=== PATIENT | female | born 1950 | race Caucasian/White ===

== ENCOUNTER 2025-05-29 21:42 | Inpatient (IN) ==
--- NOTE | 2025-05-29 22:05 | ED Physician Documentation ---
History of Present Illness Stated complaint Stated Complaint: GLF Chief complaint Chief Complaint: General History obtained from History obtained from: Patient and EMS History of Present Illness Pain level max: 7 Pain level now: 7 Additonal information Additional information: Patient is a 75-year-old female who lives at home with family. Mechanical fall, landing on the right hip. Unable to walk after the fall. History of developmental delay and early dementia. No home medications. No head, neck, back pain. Patient states she does not take any medications at home. No nausea or vomiting. No numbness or tingling. [place] Coma Scale Assess Eye opening: Spontaneous Verbal response: Oriented Motor response: Obeys Commands Total score: 15 Review of Systems Constitutional Denies: Fever Ears, nose, mouth, and throat Denies: Neck pain Cardiovascular Denies: chest pain or palpitations Respiratory Denies: Cough Gastrointestinal Denies: Abdominal pain or Vomiting Musculoskeletal Denies: Back pain or Neck pain Integumentary/Breast Denies: Rash Neurological Denies: Headache Meds/Allgy Home Medications Ambulatory Orders Medication Instructions Recorded Confirmed No Known Home Medications 07/24/2405/04 Allergies Allergies Allergy/AdvReac Type Severity Reaction Status Date / Time No Known Drug Allergies Allergy Verified 07/24/24 15:08 PFSH Active Problems All Active Problems (Updated 05/29/25 @ 22:17 by Cedrick Castaneda MD) Intertrochanteric fracture of right hip (Acute) Social History Social History Do you feel safe in your home environment?: Yes History of physical, verbal, emotional, or financial abuse?: No Exam Exam Vital Signs: Vital Signs x48h Temp Pulse Resp BP Pulse Ox 05/29/25 21:54 87 20 130/77 96 05/29/25 21:47 36.7 C 78 20 141/69 H 98 Constitutional normal general appearance and no apparent distress HENMT normocephalic, head/scalp atraumatic and TMs normal bilaterally Eyes PERRL and EOMs intact bilaterally Neck/C-Spine visual inspection normal, trachea midline, cervical spine nontender and cervical full ROM noted No tenderness to palpation or percussion. No step-off or deformity. Chest inspection of chest normal and palpation of chest normal Respiratory breath sounds equal bilaterally, normal respiratory effort and clear to ausc ultation bilaterally Cardiovascular normal heart rate noted and regular rhythm noted Gastrointestinal abdomen normal to inspection, abdomen soft to palpation, nontender to palpation, nontender to percussion and nondistended Genitourinary no CVA tenderness Back/Pelvis spine normal to inspection, no thoracic spine tenderness and no lumbar spine tenderness No tenderness to palpation or percussion. No step-off or deformity over the thoracolumbar spine Extremities right hip - Tender to palpation over the right hip. Leg is mildly shortened and externally rotated. Neurovascularly intact. Pain with range of motion. Otherwise normal examination of the extremities. Neurology chief ii dispatcher II-XII intact and GCS 15 Psychiatry mental status grossly normal and oriented x3 Skin skin color normal Results Vitals Vitals: Vital Signs - 24 hr 05/29/25 21:47 05/29/25 21:50 05/29/25 21:54 Temperature 36.7 C Temperature Source Tympanic Pulse Rate 78 87 Respiratory Rate 20 20 Blood Pressure 141/69 H 130/77 O2 Saturation 98 96 Oxygen Delivery Method Room Air O2 Source Room air Room air Pain Intensity 7 7 05/29/25 22:43 Temperature Temperature Source Pulse Rate Respiratory Rate Blood Pressure O2 Saturation Oxygen Delivery Method O2 Source Pain Intensity 8 Oxygen O2 Source Room air Labs Labs: Laboratory Tests 05/29/25 22:12 WBC 11.0 H RBC 3.25 L Hgb 10.9 L Hct 33.7 L MCV 103.7 H MCH 33.5 H MCHC 32.3 RDW 17.4 H Plt Count 158 MPV 11.7 H Neut # (Auto) 8.9 H Lymph # (Auto) 0.9 L [place] # (Auto) 0.8 Eos # (Auto) 0.1 Baso # (Auto) 0.1 Absolute Nucleated RBC 0.00 Nucleated RBC % 0.0 Sodium 141 Potassium 3.9 Chloride 109 Carbon Dioxide 24 Anion Gap 8.0 BUN 28 H Creatinine 1.2 Estimated GFR (MDRD) 44 L Glucose 153 H Calcium 9.2 Total Bilirubin 0.7 AST 15 ALT 9 L Alkaline Phosphatase 67 Total Protein 7.3 Albumin 3.9 Globulin 3.4 Albumin/Globulin Ratio 1.1 Rads (name of study) Right hip x-ray: Relevant Findings:: Final report received Chest x-ray: Relevant Findings:: Final report received PD Medical Decision Making ED course Complexity details: reviewed results, re-evaluated patient, considered differential and d/w patient ED course: Patient with a right intertrochanteric hip fracture. Neurovascularly intact. Pain well-controlled with morphine. Discussed the case with orthopedics, Dr. Clarke, will see in the morning. Discussed the case with the hospitalist who accepts. No other acute injuries. No significant lab abnormalities. Patient will be admitted. This document was made in part using voice recognition software. While efforts are made to proofread this document, sound alike and grammatical errors may occur. Discharge Plan Discharge Patient Disposition: 66 [facility] DC/Xfer Condition: Stable Clinical Impression: Intertrochanteric fracture of right hip Qualifiers: Encounter type: initial encounter Fracture type: closed Fracture alignment: displaced Qualified Code(s): S72.141A - Displaced intertrochanteric fracture of right femur, initial encounter for closed fracture Prescriptions: No Action No Known Home Medications Print Language: Urdu
[2025-05-29 22:16] LABS: HCT - HEMATOCRIT 33.7 % (37.0-47.0); HGB - HEMOGLOBIN 10.9 g/dL (12.0-16.0); MEAN PLATELET VOLUME 11.7 fL (7.9-10.8); NRBC ABSOLUTE COUNT (AUTO) 0.00 x10^3/uL; NUCLEATED RED BLOOD CELLS AUTO 0.0 /100WBC; PLT - PLATELET COUNT 158 10^3/uL (130-450); RED CELL DISTRIBUTION WIDTH 17.4 % (12.0-15.0)
--- NOTE | 2025-05-29 22:32 | XRAY Report ---
PROCEDURE: XR Chest 1V INDICATIONS: pre-op TECHNIQUE: One view of the chest was acquired. COMPARISON: None. FINDINGS: Surgical changes and devices: None. Lungs and pleura: No pleural effusions or pneumothorax. No consolidation. Mild interstitial prominence, which may be chronic. Mediastinum: Mediastinal contours appear normal. Heart size is normal. Bones and chest wall: No suspicious bony lesions. Overlying soft tissues appear unremarkable. IMPRESSION: Mild bilateral interstitial prominence, which may be chronic versus secondary to mild edema or an atypical or viral pneumonia. Reviewed by: Eladio Recinos MD on 05/29/2025 10:31 PM PDT Approved by: Eladio Recinos MD on 05/29/2025 10:31 PM PDT Station ID: [id number]
--- NOTE | 2025-05-29 22:34 | XRAY Report ---
PROCEDURE: XR Hip w/Pelvis 2-3V RT INDICATIONS: fall, pain TECHNIQUE: AP view of the pelvis and lateral view of the right hip. COMPARISON: None. FINDINGS: Bones: Comminuted fracture of the intertrochanteric region of the right proximal femur with varus angulation. Mildly displaced fractures of the left superior and inferior pubic rami. Generalized bony demineralization. Degenerative changes are seen in the included spine. Soft tissues: No suspicious soft tissue calcifications. IMPRESSION: 1.Comminuted displaced intertrochanteric fracture of the right proximal femur with varus angulation. 2.Mildly displaced fractures of the left superior and inferior pubic rami. Reviewed by: Eladio Recinos MD on 05/29/2025 10:33 PM PDT Approved by: Eladio Recinos MD on 05/29/2025 10:33 PM PDT Station ID: [id number]
[2025-05-29] MEDS: HYDROmorphone 0.5 MG/0.5 ML SYRINGE IVP STA (22:43)
[2025-05-29 22:48] LABS: ALT ALANINE AMINOTRANSFERASE 9.0 IU/L (10-60); AST ASPARTATE AMINOTRANSFERASE 15.0 IU/L (10-42); BUN - BLOOD UREA NITROGEN 28.0 mg/dL (6-20); CARBON DIOXIDE - CO2 24.0 mmol/L (21-32); CREATININE 1.2 mg/dL (0.6-1.3); GFR - MDRD 44.0 (>89)
[2025-05-29] MEDS ORDERED: PHENOL THROAT SPRAY 177 ML MM PRN (23:57)
[2025-05-29] MEDS ORDERED: BENZONATATE 100 MG CAPSULE PO PRN (23:57)
[2025-05-29] MEDS ORDERED: ALBUTEROL 1 PUFF INH PRN (23:57)
[2025-05-29] MEDS ORDERED: BENZOCAINE/MENTHOL LOZENGE MM PRN (23:57)
[2025-05-29] MEDS ORDERED: MORPHINE 10 MG/ML VIAL IVP PRN (23:57)
[2025-05-30] MEDS ORDERED: ALBUTEROL NEB 2.5 MG/3 ML INH PRN (00:16)
[2025-05-30 00:42] LABS: CHOL/HDL RATIO 2.2 (<4.4); LDL/HDL RATIO 1.0 (<4.4); VLDL CHOLESTEROL 11 mg/dL
--- NOTE | 2025-05-30 01:43 | HISTORY & PHYSICAL EXAMINATION ---
Chief Complaint Chief Complaint Chief Complaint: R hip pain s/p fall from bed History of Present Illness History of Present Illness HPI Comment/Other: pt with h/o developmental delay + early dementia. brought to hospital after rolling out of bed and hurting her R hip. apart from hip pain, she has no other complaints. does not take any meds. no fevers, chills, n/v/d. no head injuries or LOC. no dysuria reported. no chest pain. no head pain. no sob. details obtained from discussion with ed staff. ortho consulted d/o displaced R intertrochanteric fx. no numbness or tingling. Review of Systems Status of ROS: 10 or more systems reviewed and unremarkable except as noted in history and below PFSH Active Problems All Active Problems (Updated 05/29/25 @ 22:17 by Cedrick Castaneda MD) Intertrochanteric fracture of right hip (Acute) Social History Social History Smoking Status: Never smoker Do you feel safe in your home environment?: Yes History of physical, verbal, emotional, or financial abuse?: No Meds/Allgy Home Medications Ambulatory Orders Medication Instructions Recorded Confirmed No Known Home Medications 07/24/2405/04 Allergies Allergies Allergy/AdvReac Type Severity Reaction Status Date / Time No Known Drug Allergies Allergy Verified 07/24/24 15:08 Exam Exam Vital Signs: Vital Signs x48h Temp Pulse Pulse Resp BP BP Pulse Ox 05/30/25 01:05 36.7 C 83 41 H 156/73 H 94 05/30/25 00:39 87 22 137/89 H 98 05/29/25 23:50 67 22 135/87 H 98 05/29/25 21:54 87 20 130/77 96 05/29/25 21:47 36.7 C 78 20 141/69 H 98 gen - awake, alert, can't describe all details preceding but otherwise can answer simple questions. nad heent - eomi, nc/at, smiling heart - per ed charting lungs - no obvious distress or retractions abd - no obvious distension or protrusions msk - pt wearing pants so exam limited; details per ed charting Conclusion/Plan Problem List (1) Intertrochanteric fracture of right hip: Qualifiers: Encounter type: initial encounter Fracture alignment: displaced F racture type: closed Qualified Code(s): S72.141A - Displaced intertrochanteric fracture of right femur, initial encounter for closed fracture Plan pt with - R hip fracture s/p fall from bed ortho on case bedrest, pain control, will need pt post-op - elevated bp no meds noted for htn likely related to pain / discomfort monitor - leukocytosis + neutrophilia maybe exacerbated d/t above check ua, cxr showing possibl findings of viral pna check resp viral panel no sob, no fevers or chills, no chest pain - anemia chronic disease / debility + kidney disease (below) check iron studies - akila vs ckd likely age-related changes vs hypertensive nephropathy continue IVF check renal sono further orders per clinical course Lab Results 05/29/25 22:12 05/29/25 22:12
[2025-05-30] MEDS: MORPHINE 2 MG/ML CARPUJECT IVP PRN (01:48)
[2025-05-30] MEDS: LACTATED RINGERS 1,000 ML IV SCH ×3 (01:52→16:22)
[2025-05-30 04:35] LABS: INFLUENZA A- RESP PCR PANEL NOT DETECTED; INFLUENZA B - RESP PCR PANEL NOT DETECTED; RSV- RESP PCR PANEL NOT DETECTED; SARS-CoV-2 -RESP PCR PANEL NOT DETECTED
[2025-05-30 05:21] LABS: HCT - HEMATOCRIT 34.2 % (37.0-47.0); HGB - HEMOGLOBIN 10.5 g/dL (12.0-16.0); MEAN PLATELET VOLUME 12.2 fL (7.9-10.8); NRBC ABSOLUTE COUNT (AUTO) 0.00 x10^3/uL; NUCLEATED RED BLOOD CELLS AUTO 0.0 /100WBC; PLT - PLATELET COUNT 159 10^3/uL (130-450); RED CELL DISTRIBUTION WIDTH 17.3 % (12.0-15.0)
[2025-05-30 05:41] LABS: % IRON SATURATION 12.0 % (20-50)
[2025-05-30 05:52] LABS: ALT ALANINE AMINOTRANSFERASE 10.0 IU/L (10-60); AST ASPARTATE AMINOTRANSFERASE 20.0 IU/L (10-42); BUN - BLOOD UREA NITROGEN 25.0 mg/dL (6-20); CARBON DIOXIDE - CO2 27.0 mmol/L (21-32); CREATININE 1.1 mg/dL (0.6-1.3); GFR - MDRD 48.0 (>89)
--- NOTE | 2025-05-30 07:59 | CONSULTATION NOTE ---
History of Present Illness History of Present Illness HPI Comment/Other: Primary Care Office Visit: HPI: Alba Chao is an elderly patient who fell in her bedroom. She rolled in bed and fell out of the bed. Unable to get up or walk after the fall. Lives with family. No other major medical conditions reported. Exam: Patient able to wiggle toes. Foot warm with 2+ pulse. Sensation intact to light touch. Pain with hip movement. No obvious deformity noted. Results: Pelvic X rays show right endotracheal enteric fracture with displaced lesser trochanteric fracture. The neck shaft angle is about 105 degrees. Office Procedures: Assessment and Plan: Assessment: Intertrochanteric fracture of the hip, confirmed by X-rays. Patient unable to ambulate due to the fracture. Plan: Surgical intervention recommended with implants (metal hardware, imke, and screws). Surgery expected to allow patient to walk as soon as the day after the procedure. Patient deemed a good candidate for surgery by the medical team. Nothing to eat or drink in preparation for surgery. Patient to be scheduled for surgery shortly. Post-operative plan includes allowing the patient to eat after the procedure. PFSH Active Problems All Active Problems (Updated 05/30/25 @ 02:09 by Melony Durán RN, BSN) Intertrochanteric fracture of right hip (Acute) Medical History Medical History (Updated 05/30/25 @ 02:09 by Melony Durán, RN, BSN) Developmental delay Nose fracture Social History Social History (Updated 05/30/25 @ 02:01 by Naveen Camp DO) Smoking Status: Never smoker Do you feel safe in your home environment?: Yes History of physical, verbal, emotional, or financial abuse?: No Meds/Allgy Home Medications Ambulatory Orders Medication Instructions Recorded Confirmed No Known Home Medications 07/24/2405/04 Allergies Allergies Allergy/AdvReac Type Severity Reaction Status Date / Time No Known Drug Allergies Allergy Verified 07/24/24 15:08 Results Lab Results Lab results reviewed: Yes 05/30/25 05:06 05/30/25 05:06 Other Lab Results: Lab Results x24hrs 05/30/25 05/30/25 05/29/25 Range/Units 05:06 03:30 22:12 WBC 12.2 H 11.0 H (4.8-10.8) x10^3/uL RBC 3.25 L 3.25 L (4.20-5.40) 10^6/uL Hgb 10.5 L 10.9 L (12.0-16.0) g/dL Hct 34.2 L 33.7 L (37.0-47.0) % MCV 105.2 H 103.7 H (81.0-99.0) fL MCH 32.3 H 33.5 H (27.0-31.0) pg MCHC 30.7 L 32.3 (32.0-36.0) g/dL RDW 17.3 H 17.4 H (12.0-15.0) % Plt Count 159 158 (130-450) 10^3/uL MPV 12.2 H 11.7 H (7.9-10.8) fL Neut # (Auto) 10.2 H 8.9 H (1.5-6.6) 10^3/uL Lymph # (Auto) 0.8 L 0.9 L (1.5-3.5) 10^3/uL [place] # (Auto) 1.0 0.8 (0.0-1.0) 10^3/uL Eos # (Auto) 0.0 0.1 (0.0-0.7) 10^3/uL Baso # (Auto) 0.1 0.1 (0.0-0.1) 10^3/uL Absolute Nucleated RBC 0.00 0.00 x10^3/uL Nucleated RBC % 0.0 0.0 /100WBC Sodium 140 141 (135-145) mmol/L Potassium 4.7 H 3.9 (3.5-4.5) mmol/L Chloride 107 109 (101-111) mmol/L Carbon Dioxide 27 24 (21-32) mmol/L Anion Gap 6.0 8.0 (6-13) BUN 25 H 28 H (6-20) mg/dL Creatinine 1.1 1.2 (0.6-1.3) mg/dL Estimated GFR (MDRD) 48 L 44 L (>89) Glucose 142 H 153 H (74-104) mg/dL Calcium 9.1 9.2 (8.5-10.3) mg/dL Magnesium 1.9 (1.7-2.3) mg/dL Iron 27 L (50-212) ug/dL TIBC 217 L (250-450) ug/dL % Saturation 12 L (20-50) % Transferrin 155 L (203-362) mg/dL Ferritin 1283.6 H (11.0-306.8) ng/mL Total Bilirubin 1.1 H 0.7 (0.2-1.0) mg/dL AST 20 15 (10-42) IU/L ALT 10 9 L (10-60) IU/L Alkaline Phosphatase 63 67 (42-121) IU/L Total Protein 7.1 7.3 (6.4-8.9) g/dL Albumin 3.9 3.9 (3.2-5.5) g/dL Globulin 3.2 3.4 (2.1-4.2) g/dL Albumin/Globulin Ratio 1.2 1.1 (1.0-2.2) Triglycerides 55 mg/dL Cholesterol 123 ( - 200) mg/dL LDL Cholesterol, Calc 55 ( - 129) mg/dL VLDL Cholesterol 11 mg/dL HDL Cholesterol 57 L (60 - ) mg/dL LDL/HDL Ratio 1.0 (<4.4) Cholesterol/HDL Ratio 2.2 (<4.4) TSH 1.88 (0.34-5.60) uIU/mL Nasal Influenza B PCR NOT DETECTED Nasal Influenza A PCR NOT DETECTED Nasal RSV (PCR) NOT DETECTED Nasal SARS-CoV-2 (PCR) NOT DETECTED Diagnostic Imaging Results Diagnostic Imaging Results: positive Read independently Review of Systems Status of ROS: 10 or more systems reviewed and unremarkable except as noted in history and below Constitutional Denies: Fever Ears, nose, mouth, and throat Denies: Neck pain Cardiovascular Denies: chest pain or palpitations Respiratory Denies: Cough Gastrointestinal Denies: Abdominal pain or Vomiting Musculoskeletal Denies: Back pain or Neck pain Integumentary/Breast Denies: Rash Neurological Denies: Headache Exam Exam Vital Signs: Vital Signs x48h Temp Pulse Pulse Resp BP BP Pulse Ox 05/30/25 05:06 36.5 C 76 28 H 126/63 94 05/30/25 02:01 22 05/30/25 01:05 36.7 C 83 41 H 156/73 H 94 05/30/25 00:39 87 22 137/89 H 98 gen - awake, alert, can't describe all details preceding but otherwise can answer simple questions. nad heent - eomi, nc/at, smiling heart - per ed charting lungs - no obvious distress or retractions abd - no obvious distension or protrusions msk - pt wearing pants so exam limited; details per ed charting Constitutional normal general appearance and no apparent distress HENMT normocephalic, head/scalp atraumatic and TMs normal bilaterally Eyes PERRL and EOMs intact bilaterally Neck/C-Spine visual inspection normal, trachea midline, cervical spine nontender and cervical full ROM noted No tenderness to palpation or percussion. No step-off or deformity. Chest inspection of chest normal and palpation of chest normal Respiratory breath sounds equal bilaterally, normal respiratory effort and clear to auscultation bilaterally Cardiovascular normal heart rate noted and regular rhythm noted Gastrointestinal abdomen normal to inspection, abdomen soft to palpation, nontender to palpation, nontender to percussion and nondistended Genitourinary no CVA tenderness Back/Pelvis spine normal to inspection, no thoracic spine tenderness and no lumbar spine tenderness No tenderness to palpation or percussion. No step-off or deformity over the thoracolumbar spine Extremities right hip - Tender to palpation over the right hip. Leg is mildly shortened and externally rotated. Neurovascularly intact. Pain with range of motion. Otherwise normal examination of the extremities. Neurology commercial intelligence manager II-XII intact and GCS 15 Psychiatry mental status grossly normal and oriented x3 Skin skin color normal Conclusion/Plan Problem List (1) Intertrochanteric fracture of right hip: Plan: R hip Intertrochanteric fracture. Qualifiers: Encounter type: initial encounter Fracture alignment: displaced F racture type: closed Qualified Code(s): S72.141A - Displaced intertrochanteric fracture of right femur, initial encounter for closed fracture Lab Results Lab results reviewed: Yes 05/30/25 05:06 05/30/25 05:06 Diagnostic Imaging Results Diagnostic Imaging Results: positive Read independently
[2025-05-30 08:42] LABS: ESTIMATED AVERAGE GLUCOSE 105 mg/dL (70-100); HEMOGLOBIN A1c% 5.3 % (4.27-6.07)
[2025-05-30] MEDS: MULTIVITAMIN W/MINERALS TABLET PO SCH (09:37)
--- NOTE | 2025-05-30 10:04 | PHARMACY PROGRESS NOTE ---
Best Possible Medication History Admit Date and Time: 05/30/25 0738 Home Medications Medication Instructions Recorded Confirmed Type No Known Home Medications 07/24/2405/04 History Processed by: Pharmacy Medications reviewed in ED?: No Medication History completed: Yes Patient Interview: Completed [facility] Statement: As the person ultimately responsible for medication therapy, providers are able to order a medication from an existing home medication list in [facility] via the "Reconcile Routine" prior to Confirmation of that medication by medical support assistant. Such practice is discouraged except when the physician, in their clinical judgment, deems that a medical need exists for a medication without regard to previous use.
[2025-05-30] MEDS ORDERED: PROPOFOL 200 MG/20 ML VIAL IVP ONE (10:25)
[2025-05-30] MEDS ORDERED: fentaNYL 100 MCG/2 ML VIAL ONE (10:25)
[2025-05-30] MEDS ORDERED: LIDOCAINE-PF 2% 10 ML AMP SUBQ ONE (10:25)
[2025-05-30] MEDS ORDERED: BACITRACIN ZINC OINT 1 PACKET TOP ONE ×2 (10:31→10:39)
[2025-05-30] MEDS ORDERED: ROPIVACAINE 0.5% PF 20 ML VIAL ONE (10:32)
[2025-05-30] MEDS ORDERED: LIDOCAINE 1%-EPI 1:100000 20 ML MDV ONE (10:32)
[2025-05-30] MEDS ORDERED: KETOROLAC 30 MG/ML VIAL ONE (10:33)
[2025-05-30] MEDS ORDERED: TRANEXAMIC ACID IN NACL 1,000 MG/100 ML BAG IV ONE ×2 (10:36→12:50)
[2025-05-30] MEDS ORDERED: PHENYLEPHRINE HCL 0.5 MG/5 ML AMPULE ONE (10:36)
[2025-05-30] MEDS ORDERED: ACETAMINOPHEN 1,000 MG/100 ML 1,000 MG/100 ML BAG IV ONE (10:37)
[2025-05-30] MEDS ORDERED: ePHEDrine 50 MG/ML VIAL IVP ONE (10:37)
[2025-05-30] MEDS ORDERED: MORPHINE 2 MG/ML CARPUJECT IVP PRN (10:44)
[2025-05-30] MEDS ORDERED: NALOXONE 0.4 MG/ML VIAL IVP PRN (10:44)
[2025-05-30] MEDS ORDERED: ONDANSETRON 4 MG/2 ML VIAL IVP PRN (10:44)
[2025-05-30] MEDS ORDERED: HYDROmorphone 0.5 MG/0.5 ML SYRINGE IVP PRN (10:44)
[2025-05-30] MEDS ORDERED: ATROPINE ABBOJECT 1 MG/10 ML SYRINGE IVP PRN (10:44)
[2025-05-30] MEDS ORDERED: ePHEDrine 50 MG/ML VIAL IVP PRN (10:44)
[2025-05-30] MEDS ORDERED: METOCLOPRAMIDE 10 MG/2 ML VIAL IVP PRN (10:44)
[2025-05-30] MEDS ORDERED: fentaNYL 100 MCG/2 ML VIAL IVP PRN (10:44)
--- NOTE | 2025-05-30 10:44 | ANESTHESIA PROCEDURE NOTE ---
Pre-Anesthesia VS, & Labs Diagnosis Surgical Diagnosis:: right hip fracture Procedure Procedure: right hip nailing Vitals Vital Signs: Temp Pulse Resp BP Pulse Ox 36.7 C 74 20 124/76 95 05/30/25 09:00 05/30/25 09:00 05/30/25 09:00 05/30/25 09:00 05/30/25 09:00 NPO NPO: >8 hours Is Patient ?: Not Applicable Lab Results Current Lab Results: Laboratory Tests 05/30/25 05:06: WBC 12.2 H, RBC 3.25 L, Hgb 10.5 L, Hct 34.2 L, MCV 105.2 H, MCH 32.3 H, MCHC 30.7 L, RDW 17.3 H, Plt Count 159, MPV 12.2 H, Neut # (Auto) 10.2 H , Lymph # (Auto) 0.8 L, [place] # (Auto) 1.0, Eos # (Auto) 0.0, Baso # (Auto) 0.1, Absolute Nucleated RBC 0.00, Nucleated RBC % 0.0, Sodium 140, Potassium 4.7 H, Chloride 107, Carbon Dioxide 27, Anion Gap 6.0, BUN 25 H, Creatinine 1.1, E stimated GFR (MDRD) 48 L, Glucose 142 H, Estimat Average Glucose 105 H, Hemoglobin A1c % 5.3, Calcium 9.1, Magnesium 1.9, Iron 27 L, TIBC 217 L, % Saturation 12 L, Transferrin 155 L, Ferritin 1283.6 H, Total Bilirubin 1.1 H, AST 20, ALT 10, Alkaline Phosphatase 63, Total Protein 7.1, Albumin 3.9, Globulin 3.2, Albumin/Globulin Ratio 1.2 05/29/25 22:12: WBC 11.0 H, RBC 3.25 L, Hgb 10.9 L, Hct 33.7 L, MCV 103.7 H, MCH 33.5 H, MCHC 32.3, RDW 17.4 H, Plt Count 158, MPV 11.7 H, Neut # (Auto) 8.9 H, L ymph # (Auto) 0.9 L, [place] # (Auto) 0.8, Eos # (Auto) 0.1, Baso # (Auto) 0.1, Absolute Nucleated RBC 0.00, Nucleated RBC % 0.0, Sodium 141, Potassium 3.9, Chloride 109, Carbon Dioxide 24, Anion Gap 8.0, BUN 28 H, Creatinine 1.2, E stimated GFR (MDRD) 44 L, Glucose 153 H, Calcium 9.2, Total Bilirubin 0.7, AST 15, ALT 9 L, Alkaline Phosphatase 67, Total Protein 7.3, Albumin 3.9, Globulin 3.4, Albumin/Globulin Ratio 1.1, Triglycerides 55, Cholesterol 123, LDL Cholesterol, Calc 55, VLDL Cholesterol 11, HDL Cholesterol 57 L, LDL/HDL Ratio 1.0, Cholesterol/HDL Ratio 2.2, TSH 1.88 Lab results reviewed: Yes 05/30/25 05:06 05/30/25 05:06 Meds/Allgy Home Medications Ambulatory Orders Medication Instructions Recorded Confirmed No Known Home Medications 07/24/2405/04 Allergies Allergies Allergy/AdvReac Type Severity Reaction Status Date / Time No Known Drug Allergies Allergy Verified 07/24/24 15:08 PFSH Active Problems All Active Problems Intertrochanteric fracture of right hip (Acute) Medical History Medical History Developmental delay Nose fracture Social History Social History Smoking Status: Never smoker Do you feel safe in your home environment?: Yes History of physical, verbal, emotional, or financial abuse?: No Anesthesia Exam (Expanded) Exam General: Mild distress Dental: Poor dentition Mouth Openin Fingerbreadth Neck Mobility: Reduced Mallampati classification: II Thyromental Distance: 4-6 cm Respiratory: Lungs clear Cardiovascular: Regular rate Exam Exam Vital Signs: Vital Signs x48h Temp Pulse Resp BP Pulse Ox 05/30/25 09:00 36.7 C 74 20 124/76 95 05/30/25 05:06 36.5 C 76 28 H 126/63 94 Plan Plan Anesthesia Type: General Consent for Procedure(s) Verified and Reviewed: Yes Code Status: Attempt Resuscitation ASA Classification ASA classification: 2-Mild systemic disease Is this case an emergency?: No
[2025-05-30] MEDS ORDERED: HYDROmorphone 1 MG/ML CARPUJECT ONE (12:02)
[2025-05-30] MEDS ORDERED: ONDANSETRON 4 MG/2 ML VIAL ONE (12:11)
[2025-05-30] MEDS ORDERED: DEXAMETHASONE 4 MG/ML VIAL ONE (12:11)
--- NOTE | 2025-05-30 13:16 | OPERATIVE REPORT ---
Operative Report General Admit Date: 05/30/25 Procedure Data: Operation Date: 05/30/25 09:15 Proposed Procedures p Hip Nailing, INTERTAN(Right) - David Clarke MD Actual Procedures p HIP OPEN REDUCTION INTERNAL FIXATION(Right) - David Clarke MD Pre-Op Diagnosis: DISPLACED RIGHT HIP INTERTROCHANTERIC FRACTURE Anesthesia Type General Case Staff Anesthesia Provider: Bobo Abdalla Rep: GERSON EASLEY/OLIVER. Case Times Into Recovery: 05/30/25 13:08 Procedure Start: 05/30/25 12:02 Procedure End: 05/30/25 12:58 Time out: 05/30/25 11:43 Implants TRIGEN LAG SCRW 90/95MM TRIGEN L-P SCREW [id number] Pre-Op Diagnosis: right hip intertrochanteric fracture Post Op Diagnosis: right hip intertrochanteric fracture Procedure Note Estimated Blood Loss (ml): 50 Pathology: none Indications: right hip intertrochanteric fracture Complications: none Other Other Information/Narrative: Alba Chao is a 75-year-old woman with preoperative and postoperative diagnosis of right hip intertrochanteric fracture. Treatment options and the risks and benefits of each were discussed in detail with the patient and her and she wished to proceed with internal fixation and reduction of the fracture with intramedullary nail and screws. Attempt was made through 7 phone numbers in total to reach the main listed family member the brother Sim and other family members and no one was reachable in the hours prior to the surgery. Therefore 2 doctor consent was signed given the clear indications and patient's own desire to have the surgery. Patient was positioned supine on the fracture table after spinal anesthetic. She had close reduction of the fracture with fluoroscopic guidance with gentle traction and rotation to neutral as well as use of a crutch to elevate the d istal femur. The AP and lateral views confirmed adequate reduction. The right hip area was sterilely prepped and draped in usual fashion. The incision was marked and preinjected and guidewire placed to the tip of the trochanter. It was advanced with AP and lateral fluoroscopic control. The entry reamer was used to open the proximal femur and the nail was placed to the correct depth again measured with fluoroscopy. The cephalomedullary guidewire was placed in center center position and measured. 15 mm was subtracted and the triple reamer used to create an opening. The compression screw was also prepared. The 95 mm cephalomedullary screw was placed to the center position of the femoral head compression kit was used to compress the fracture with fluoroscopic control. The AP and lateral views confirmed good reduction. Next the distal interlock screw was placed through the static hole using the aiming arm. This measured 30 mm. Final Fluoroscopic views confirmed good reduction and hardware position. The wounds were copiously irrigated the fascia was closed with 2-0 PDS 2-0 PDS subdermal's and cynthia in the skin of the deep incision area was anesthetized with a cocktail of Toradol 30 mg Naropin and epinephrine. Patient is allowed to be weightbearing as tolerated. No hip dislocation precautions are needed. Given the lack of personal or family history of DVT patient may have aspirin twice daily for DVT prophylaxis. She may have Advil or other NSAID for along with Tylenol for postoperative pain control. For breakthrough pain she may have tramadol 50 mg every 4-6 hours. She should follow-up in orthopedics in 3 weeks.
--- NOTE | 2025-05-30 15:21 | Ultrasound Report ---
PROCEDURE: US Renal (Retroperitoneal) INDICATIONS: akila vs ckd TECHNIQUE: Real-time scanning was performed of the retroperitoneal organs, with image documentation. COMPARISON: None. FINDINGS: Limited exam secondary to positioning and unable to perform breath holds. Kidneys: Kidneys are normal in size, with increased parenchymal echogenicity. Right kidney measures 9.9 cm long; left kidney measures 10.3 cm long. No solid masses. No hydronephrosis. No shadowing stones. No complex renal cystic lesions which require dedicated follow up. Bladder: Pre-void bladder volume is 389 mL. Post-void was not obtained as patient was unable to void. Pre-void images demonstrate no intraluminal masses or stones. On pre-void images, bilateral ureteral jets are noted with color Doppler interrogation. (Of note, ureteral jets may not be detectable in up to 25% of cases due to insufficient differences in specific gravity between ureteral and bladder urine). Miscellaneous: No free abdominal fluid. IMPRESSION: 1.Limited exam. No hydronephrosis. Increased echogenicity of the kidneys which can be seen with medical renal disease. 2.Prevoid bladder volume 389 mL. Patient was unable to void, correlate for bladder obstruction. Reviewed by: Ortega Rader MD on 05/30/2025 3:19 PM PDT Approved by: Ortega Rader MD on 05/30/2025 3:19 PM PDT Station ID: [id number]
--- NOTE | 2025-05-30 15:45 | XRAY Report ---
PROCEDURE: FL OR C-Arm Procedure INDICATIONS: right hip nailing FLUORO TIME: 001.3 minutes. Cumulative dose 9.9 mGy TECHNIQUE: Intraoperative fluoroscopic films obtained for a medical procedure. COMPARISON: None. FINDINGS/IMPRESSION: Intraoperative fluoroscopic films obtained for a medical procedure. Please see operative note. Reviewed by: Amie Li MD on 05/30/2025 3:43 PM PDT Approved by: Amie Li MD on 05/30/2025 3:43 PM PDT Station ID: [id number]
--- NOTE | 2025-05-30 19:18 | ANESTHESIA POST OP EVALUATION ---
Anesthesia Post Eval Post Anesthesia Eval Vitals: Last Vital Signs Temp 36.3 C L 05/30/25 16:46 Pulse 74 05/30/25 16:46 Resp 16 05/30/25 16:46 BP 112/58 L 05/30/25 16:46 Pulse Ox 96 05/30/25 16:46 CV Function Including HR & BP: Stable Pain Control: Satisfactory Nausea & Vomiting: Negative Mental Status: Baseline Respiratory Status: Airway Patent Hydration Status: Satisfactory Anesthesia Complications: None
[2025-05-30] MEDS: ONDANSETRON 4 MG/2 ML VIAL IVP PRN (19:24)
[2025-05-30 20:05] LABS: GLUCOSE, URINE (UA) NEGATIVE (NEGATIVE); KETONES,URINE (UA) NEGATIVE (NEGATIVE); OCCULT BLOOD,URINE NEGATIVE (NEGATIVE)
[2025-05-30 20:15] LABS: SQUAMOUS EPITHELIAL CELL,UR RARE Squamous (<= Few)
--- NOTE | 2025-05-30 20:38 | PROVIDER PROGRESS NOTE ---
Subjective Prog Note Date Prog Note Date: 05/30/25 Prog Note Time: 14:00 Subjective Pt reports feeling: Improved Subjective: Post op exam in the patient's room: she is sitting in a chair and reports minimal pain. She reports being able to move much more easily than preop and with less pain. Moving toes and pumping ankles for exercise. Distal neurovascular exam intact. Current Medications Current Medications Current Medications: Current Medications Generic Name Dose Route Start Last Admin Trade Name Freq PRN Reason Stop Dose Admin Acetaminophen 650 mg 05/29/25 23:57 Acetaminophen 325 Mg Tablet PO Q6H PRN pain, fever Albuterol 2.5 mg 05/30/25 00:16 Albuterol Neb 2.5 Mg/3 Ml INH Q2H PRN SHORTNESS OF BREATH Benzonatate 100 mg 05/29/25 23:57 Benzonatate 100 Mg Capsule PO TID PRN Cough Lactated Ringer's 1,000 mls @ 75 mls/hr 05/30/25 01:00 05/30/25 14:25 Lr IV 75 mls/hr .[id number] TRACY Infusion Melatonin 3 mg 05/29/25 23:57 Melatonin 3 Mg Tablet PO QPM PRN sleep Morphine Sulfate 2 mg 05/30/25 00:18 05/30/25 19:24 Morphine 2 Mg/Ml Carpuject IVP 2 mg Q4H PRN Administration Severe Pain (Level 7-10) Multivitamins/Minerals 1 tab 05/30/25 08:00 05/30/25 09:37 Multivitamin W/Minerals Tablet PO Not Given DAILYWM TRACY Ondansetron HCl 4 mg 05/29/25 23:57 05/30/25 19:24 Ondansetron 4 Mg/2 Ml Vial IVP 4 mg Q8H PRN Administration Nausea / Vomiting Phenol/Menthol 1 sprays 05/29/25 23:57 Phenol Throat [place] 177 Ml MM Q4HR PRN Mouth Sore Pain Throat Lozenges 1 lozenge 05/29/25 23:57 Benzocaine/Menthol Lozenge MM Q2HR PRN Mouth Sore Pain Tramadol HCl 25 mg 05/29/25 23:57 Tramadol 50 Mg Tablet PO Q8H PRN Moderate Pain (Level 4-6) Objective Vital Signs/Intake & Output Vital Signs: Vital Signs x48h Temp Pulse Pulse Resp BP BP Pulse Ox 05/30/25 16:46 36.3 C L 74 16 112/58 L 96 05/30/25 15:46 36.5 C 72 16 101/51 L 96 05/30/25 14:46 36.5 C 83 16 113/56 L 95 05/30/25 14:28 36.5 C 68 18 108/60 96 05/30/25 14:16 36.7 C 87 16 127/76 05/30/25 13:55 36.3 C L 87 18 113/54 L 96 05/30/25 13:50 36.2 C L 88 15 106/52 L 96 05/30/25 13:45 88 18 101/51 L 96 05/30/25 13:41 36.3 C L 86 14 104/51 L 96 05/30/25 13:35 87 17 107/51 L 98 05/30/25 13:30 36.2 C L 82 12 102/53 L 100 05/30/25 13:25 85 16 107/52 L 100 05/30/25 13:20 36.2 C L 85 12 104/50 L 100 05/30/25 13:15 84 12 100/48 L 100 05/30/25 13:10 36.0 C L 86 14 106/47 L 100 Intake & Output: Intake & Output 05/27/25 05/28/25 05/29/25 05/30/25 23:59 23:59 23:59 23:59 Intake Total 2205 / 2205 Balance 2205 / 2205 Weight (kg) 74.5 kg 35 kg Objective General Appearance: positive No acute distress Eyes Bilateral: positive Normal inspection ENT: positive ENT inspection nml Neck: positive Nml inspection Respiratory: positive No respiratory distress Abdomen: positive Non-tender Lab Results 05/30/25 05:06 05/30/25 05:06 Other Labs: Lab Results x24hrs 05/30/25 05/30/25 05/30/25 Range/Units 19:40 05:06 03:30 WBC 12.2 H (4.8-10.8) x10^3/uL RBC 3.25 L (4.20-5.40) 10^6/uL Hgb 10.5 L (12.0-16.0) g/dL Hct 34.2 L (37.0-47.0) % MCV 105.2 H (81.0-99.0) fL MCH 32.3 H (27.0-31.0) pg MCHC 30.7 L (32.0-36.0) g/dL RDW 17.3 H (12.0-15.0) % Plt Count 159 (130-450) 10^3/uL MPV 12.2 H (7.9-10.8) fL Neut # (Auto) 10.2 H (1.5-6.6) 10^3/uL Lymph # (Auto) 0.8 L (1.5-3.5) 10^3/uL [place] # (Auto) 1.0 (0.0-1.0) 10^3/uL Eos # (Auto) 0.0 (0.0-0.7) 10^3/uL Baso # (Auto) 0.1 (0.0-0.1) 10^3/uL Absolute Nucleated RBC 0.00 x10^3/uL Nucleated RBC % 0.0 /100WBC Sodium 140 (135-145) mmol/L Potassium 4.7 H (3.5-4.5) mmol/L Chloride 107 (101-111) mmol/L Carbon Dioxide 27 (21-32) mmol/L Anion Gap 6.0 (6-13) BUN 25 H (6-20) mg/dL Creatinine 1.1 (0.6-1.3) mg/dL Estimated GFR (MDRD) 48 L (>89) Glucose 142 H (74-104) mg/dL Estimat Average Glucose 105 H (70-100) mg/dL Hemoglobin A1c % 5.3 (4.27-6.07) % Calcium 9.1 (8.5-10.3) mg/dL Magnesium 1.9 (1.7-2.3) mg/dL Iron 27 L (50-212) ug/dL TIBC 217 L (250-450) ug/dL % Saturation 12 L (20-50) % Transferrin 155 L (203-362) mg/dL Ferritin 1283.6 H (11.0-306.8) ng/mL Total Bilirubin 1.1 H (0.2-1.0) mg/dL AST 20 (10-42) IU/L ALT 10 (10-60) IU/L Alkaline Phosphatase 63 (42-121) IU/L Total Protein 7.1 (6.4-8.9) g/dL Albumin 3.9 (3.2-5.5) g/dL Globulin 3.2 (2.1-4.2) g/dL Albumin/Globulin Ratio 1.2 (1.0-2.2) Triglycerides mg/dL Cholesterol ( - 200) mg/dL LDL Cholesterol, Calc ( - 129) mg/dL VLDL Cholesterol mg/dL HDL Cholesterol (60 - ) mg/dL LDL/HDL Ratio (<4.4) Cholesterol/HDL Ratio (<4.4) TSH (0.34-5.60) uIU/mL Urine Color YELLOW Urine Clarity CLEAR (CLEAR) Urine pH 5.0 (5.0-7.5) PH Ur Specific [place] 1.025 (1.002-1.030) Urine Protein NEGATIVE (NEGATIVE) mg/dL Urine Glucose (UA) NEGATIVE (NEGATIVE) mg/dL Urine Ketones NEGATIVE (NEGATIVE) mg/dL Urine Occult Blood NEGATIVE (NEGATIVE) Urine Nitrite NEGATIVE (NEGATIVE) Urine Bilirubin NEGATIVE (NEGATIVE) Urine Urobilinogen 0.2 (NORMAL) (NORMAL) E.U./dL Ur Leukocyte Esterase NEGATIVE (NEGATIVE) Urine RBC None Seen (0-5) /HPF Urine WBC 0-3 (0-5) /HPF Ur Squamous Epith Cells RARE Squamous (<= Few) Urine Bacteria None Seen (None Seen) /HPF Urine Culture Comments NOT INDICATED Nasal Influenza B PCR NOT DETECTED Nasal Influenza A PCR NOT DETECTED Nasal RSV (PCR) NOT DETECTED Nasal SARS-CoV-2 (PCR) NOT DETECTED 05/29/25 Range/Units 22:12 WBC 11.0 H (4.8-10.8) x10^3/uL RBC 3.25 L (4.20-5.40) 10^6/uL Hgb 10.9 L (12.0-16.0) g/dL Hct 33.7 L (37.0-47.0) % MCV 103.7 H (81.0-99.0) fL MCH 33.5 H (27.0-31.0) pg MCHC 32.3 (32.0-36.0) g/dL RDW 17.4 H (12.0-15.0) % Plt Count 158 (130-450) 10^3/uL MPV 11.7 H (7.9-10.8) fL Neut # (Auto) 8.9 H (1.5-6.6) 10^3/uL Lymph # (Auto) 0.9 L (1.5-3.5) 10^3/uL [place] # (Auto) 0.8 (0.0-1.0) 10^3/uL Eos # (Auto) 0.1 (0.0-0.7) 10^3/uL Baso # (Auto) 0.1 (0.0-0.1) 10^3/uL Absolute Nucleated RBC 0.00 x10^3/uL Nucleated RBC % 0.0 /100WBC Sodium 141 (135-145) mmol/L Potassium 3.9 (3.5-4.5) mmol/L Chloride 109 (101-111) mmol/L Carbon Dioxide 24 (21-32) mmol/L Anion Gap 8.0 (6-13) BUN 28 H (6-20) mg/dL Creatinine 1.2 (0.6-1.3) mg/dL Estimated GFR (MDRD) 44 L (>89) Glucose 153 H (74-104) mg/dL Estimat Average Glucose (70-100) mg/dL Hemoglobin A1c % (4.27-6.07) % Calcium 9.2 (8.5-10.3) mg/dL Magnesium (1.7-2.3) mg/dL Iron (50-212) ug/dL TIBC (250-450) ug/dL % Saturation (20-50) % Transferrin (203-362) mg/dL Ferritin (11.0-306.8) ng/mL Total Bilirubin 0.7 (0.2-1.0) mg/dL AST 15 (10-42) IU/L ALT 9 L (10-60) IU/L Alkaline Phosphatase 67 (42-121) IU/L Total Protein 7.3 (6.4-8.9) g/dL Albumin 3.9 (3.2-5.5) g/dL Globulin 3.4 (2.1-4.2) g/dL Albumin/Globulin Ratio 1.1 (1.0-2.2) Triglycerides 55 mg/dL Cholesterol 123 ( - 200) mg/dL LDL Cholesterol, Calc 55 ( - 129) mg/dL VLDL Cholesterol 11 mg/dL HDL Cholesterol 57 L (60 - ) mg/dL LDL/HDL Ratio 1.0 (<4.4) Cholesterol/HDL Ratio 2.2 (<4.4) TSH 1.88 (0.34-5.60) uIU/mL Urine Color Urine Clarity (CLEAR) Urine pH (5.0-7.5) PH Ur Specific [place] (1.002-1.030) Urine Protein (NEGATIVE) mg/dL Urine Glucose (UA) (NEGATIVE) mg/dL Urine Ketones (NEGATIVE) mg/dL Urine Occult Blood (NEGATIVE) Urine Nitrite (NEGATIVE) Urine Bilirubin (NEGATIVE) Urine Urobilinogen (NORMAL) E.U./dL Ur Leukocyte Esterase (NEGATIVE) Urine RBC (0-5) /HPF Urine WBC (0-5) /HPF Ur Squamous Epith Cells (<= Few) Urine Bacteria (None Seen) /HPF Urine Culture Comments Nasal Influenza B PCR Nasal Influenza A PCR Nasal RSV (PCR) Nasal SARS-CoV-2 (PCR) Diagnostic Imaging Diagnostic Imaging Results: positive Read independently Diagnostic Imaging Comments: satisfactory IM nail stabilization of right hip intertrochanteric femur fracture Assessment/Plan Problem List (1) Intertrochanteric fracture of right hip: Impression: stable post op. Patient may ambulate with PT weightbearing as tolerated. No hip dislocation precautions. 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
[2025-05-30] MEDS: MELATONIN 3 MG TABLET PO PRN (23:47)
--- NOTE | 2025-05-31 13:38 | PROVIDER PROGRESS NOTE ---
Subjective Prog Note Date Prog Note Date: 05/31/25 Subjective Pt reports feeling: Improved Current Medications Current Medications Current Medications: Current Medications Generic Name Dose Route Start Last Admin Trade Name Marcia PRN Reason Stop Dose Admin Acetaminophen 650 mg 05/29/25 23:57 Acetaminophen 325 Mg Tablet PO Q6H PRN pain, fever Albuterol 2.5 mg 05/30/25 00:16 Albuterol Neb 2.5 Mg/3 Ml INH Q2H PRN SHORTNESS OF BREATH Benzonatate 100 mg 05/29/25 23:57 Benzonatate 100 Mg Capsule PO TID PRN Cough Calcium Carbonate/Glycine 500 mg 05/31/25 21:00 Calcium Carbonate Chew 500 Mg Tablet PO BID TRACY Cholecalciferol 25 mcg 06/01/25 09:00 Cholecalciferol 25 Mcg Tablet PO DAILY TRACY Melatonin 3 mg 05/29/25 23:57 05/30/25 23:47 Melatonin 3 Mg Tablet PO 3 mg QPM PRN Administration sleep Morphine Sulfate 2 mg 05/30/25 00:18 05/31/25 04:10 Morphine 2 Mg/Ml Carpuject IVP 2 mg Q4H PRN Administration Severe Pain (Level 7-10) Multivitamins/Minerals 1 tab 05/30/25 08:00 05/31/25 07:49 Multivitamin W/Minerals Tablet PO 1 tab DAILYWM TRACY Administration Ondansetron HCl 4 mg 05/29/25 23:57 05/30/25 19:24 Ondansetron 4 Mg/2 Ml Vial IVP 4 mg Q8H PRN Administration Nausea / Vomiting Phenol/Menthol 1 sprays 05/29/25 23:57 Phenol Throat [place] 177 Ml MM Q4HR PRN Mouth Sore Pain Throat Lozenges 1 lozenge 05/29/25 23:57 Benzocaine/Menthol Lozenge MM Q2HR PRN Mouth Sore Pain Tramadol HCl 25 mg 05/29/25 23:57 Tramadol 50 Mg Tablet PO Q8H PRN Moderate Pain (Level 4-6) Objective Vital Signs/Intake & Output Reviewed Vital Signs: Yes Vital Signs: Vital Signs x48h Temp Pulse Resp BP Pulse Ox 05/31/25 12:18 36.6 C 77 20 99/45 L 94 05/31/25 07:35 36.4 C L 71 20 102/54 L 96 Intake & Output: Intake & Output 05/28/25 05/29/25 05/30/25 05/31/25 23:59 23:59 23:59 23:59 Intake Total 2480 / 2480 1560 / 1560 Output Total 850 / 850 1000 / 1000 Balance 1630 / 1630 560 / 560 Weight (kg) 74.5 kg 35 kg Objective General Appearance: positive No acute distress and Alert Eyes Bilateral: positive Normal inspection ENT: positive ENT inspection nml Neck: positive Nml inspection Respiratory: positive Chest non-tender and No respiratory distress Cardiovascular: positive Regular rate & rhythm Abdomen: positive Non-tender Skin: positive Color nml and Other (Surgical dressing in place) Extremities: positive Non-tender Neurologic/Psychiatric: positive Other (Oriented x 1, demented) Lab Results 05/30/25 05:06 05/30/25 05:06 Other Labs: Lab Results x24hrs 05/30/25 Range/Units 19:40 Urine Color YELLOW Urine Clarity CLEAR (CLEAR) Urine pH 5.0 (5.0-7.5) PH Ur Specific [place] 1.025 (1.002-1.030) Urine Protein NEGATIVE (NEGATIVE) mg/dL Urine Glucose (UA) NEGATIVE (NEGATIVE) mg/dL Urine Ketones NEGATIVE (NEGATIVE) mg/dL Urine Occult Blood NEGATIVE (NEGATIVE) Urine Nitrite NEGATIVE (NEGATIVE) Urine Bilirubin NEGATIVE (NEGATIVE) Urine Urobilinogen 0.2 (NORMAL) (NORMAL) E.U./dL Ur Leukocyte Esterase NEGATIVE (NEGATIVE) Urine RBC None Seen (0-5) /HPF Urine WBC 0-3 (0-5) /HPF Ur Squamous Epith Cells RARE Squamous (<= Few) Urine Bacteria None Seen (None Seen) /HPF Urine Culture Comments NOT INDICATED Assessment/Plan Problem List (1) Intertrochanteric fracture of right hip: Impression: Due to fall from bed OR on 05/30 for open reduction internal fixation right intertrochanteric fracture Pain is well-controlled with Tylenol and IV morphine, as well as oral tramadol PT eval Anticipate need SNF Qualifiers: Encounter type: initial encounter Fracture alignment: displaced F racture type: closed Qualified Code(s): S72.141A - Displaced intertrochanteric fracture of right femur, initial encounter for closed fracture (2) Anemia: Impression: Was noted to have hemoglobin of 10.9 on presentation Iron panel was ordered, which shows low iron, but high ferritin, I suspect this is anemia of chronic disease She has a mild to moderate decrease in her estimated GFR Will defer management to PCP Hemoglobin stable (3) Leukocytosis: Impression: Likely reactionary due to pain UA was checked on presentation with no acute concerns Chest x-ray shows low likelihood of pneumonia
--- NOTE | 2025-05-31 15:19 | PROVIDER PROGRESS NOTE ---
Subjective General Admit Date: 05/30/25 Procedure Date: 05/30/25 Post Op Days: 1 Other Other Information/Narrative: Alert. States mild right groin pain and mild pain with hip rom, but sitting up and doing much better than preop. Still awaiting to be seen by PT. Eating well. Not requiring analgesic. Wound Assessment Wound/Incisions: positive Dressing dry and intact Review of Systems Status of ROS: 10 or more systems reviewed and unremarkable except as noted in history and below Constitutional Denies: Fever Ears, nose, mouth, and throat Denies: Neck pain Cardiovascular Denies: chest pain or palpitations Respiratory Denies: Cough Gastrointestinal Denies: Abdominal pain or Vomiting Musculoskeletal Denies: Back pain or Neck pain Integumentary/Breast Denies: Rash Neurological Denies: Headache Exam Exam Vital Signs: Vital Signs x48h Temp Pulse Resp BP Pulse Ox 05/31/25 12:18 36.6 C 77 20 99/45 L 94 05/31/25 07:35 36.4 C L 71 20 102/54 L 96 gen - awake, alert, can't describe all details preceding but otherwise can answer simple questions. nad heent - eomi, nc/at, smiling heart - per ed charting lungs - no obvious distress or retractions abd - no obvious distension or protrusions msk - neurovascularly intact distally. 5/5 ta/gs/per/tp/ehl/fhl foot well perfused. pulses unchanged Constitutional normal general appearance and no apparent distress HENMT normocephalic, head/scalp atraumatic and TMs normal bilaterally Eyes PERRL and EOMs intact bilaterally Neck/C-Spine visual inspection normal, trachea midline, cervical spine nontender and cervical full ROM noted No tenderness to palpation or percussion. No step-off or deformity. Chest inspection of chest normal and palpation of chest normal Respiratory breath sounds equal bilaterally, normal respiratory effort and clear to auscultation bilaterally Cardiovascular normal heart rate noted and regular rhythm noted Gastrointestinal abdomen normal to inspection, abdomen soft to palpation, nontender to palpation, nontender to percussion and nondistended Genitourinary no CVA tenderness Back/Pelvis spine normal to inspection, no thoracic spine tenderness and no lumbar spine tenderness No tenderness to palpation or percussion. No step-off or deformity over the thoracolumbar spine Extremities right LE neurovascularly intact. Pain with range of motion. Otherwise normal examination of the extremities. Neurology victim witness administrator II-XII intact and GCS 15 Psychiatry mental status grossly normal and oriented x3 Skin skin color normal Impression/Plan Problem List (1) Intertrochanteric fracture of right hip: Plan: R hip Intertrochanteric fracture, s/p IM nail. Qualifiers: Encounter type: initial encounter Fracture alignment: displaced Fracture type: closed Qualified Code(s): S72.141A - Displaced intertrochanteric fracture of right femur, initial encounter for closed fracture (2) Anemia: (3) Leukocytosis: Plan WBAT RLE. no hip dislocation precautions. DVT prophylaxis with aspirin if not contraindicated. ok to remove cynthia in 3 weeks. F/u in ortho 3-4 weeks.
[2025-05-31] MEDS: ACETAMINOPHEN 325 MG TABLET PO PRN (16:30)
[2025-05-31] MEDS: CALCIUM CARBONATE CHEW 500 MG TABLET PO SCH (20:52)
[2025-06-01] MEDS: CHOLECALCIFEROL 25 MCG TABLET PO SCH (08:42)
[2025-06-01] MEDS: MORPHINE 2 MG/ML CARPUJECT IVP SCH (11:47)
[2025-06-01] MEDS: ACETAMINOPHEN 500 MG TABLET PO SCH (13:53)
--- NOTE | 2025-06-01 15:25 | PROVIDER PROGRESS NOTE ---
Subjective Prog Note Date Prog Note Date: 06/01/25 Subjective Pt reports feeling: No change Current Medications Current Medications Current Medications: Current Medications Generic Name Dose Route Start Last Admin Trade Name Marcia PRN Reason Stop Dose Admin Acetaminophen 1,000 mg 06/01/25 14:00 06/01/25 13:53 Acetaminophen 500 Mg Tablet PO 1,000 mg TID TRACY Administration Albuterol 2.5 mg 05/30/25 00:16 Albuterol Neb 2.5 Mg/3 Ml INH Q2H PRN SHORTNESS OF BREATH Benzonatate 100 mg 05/29/25 23:57 Benzonatate 100 Mg Capsule PO TID PRN Cough Calcium Carbonate/Glycine 500 mg 05/31/25 21:00 06/01/25 08:42 Calcium Carbonate Chew 500 Mg Tablet PO 500 mg BID TRACY Administration Cholecalciferol 25 mcg 06/01/25 09:00 06/01/25 08:42 Cholecalciferol 25 Mcg Tablet PO 25 mcg DAILY TRACY Administration Melatonin 3 mg 05/29/25 23:57 05/30/25 23:47 Melatonin 3 Mg Tablet PO 3 mg QPM PRN Administration sleep Morphine Sulfate 1 mg 06/01/25 12:00 06/01/25 11:47 Morphine 2 Mg/Ml Carpuject IVP 1 mg Q6H TRACY Administration Multivitamins/Minerals 1 tab 05/30/25 08:00 06/01/25 08:42 Multivitamin W/Minerals Tablet PO 1 tab DAILYWM TRACY Administration Ondansetron HCl 4 mg 05/29/25 23:57 05/30/25 19:24 Ondansetron 4 Mg/2 Ml Vial IVP 4 mg Q8H PRN Administration Nausea / Vomiting Phenol/Menthol 1 sprays 05/29/25 23:57 Phenol Throat [place] 177 Ml MM Q4HR PRN Mouth Sore Pain Throat Lozenges 1 lozenge 05/29/25 23:57 Benzocaine/Menthol Lozenge MM Q2HR PRN Mouth Sore Pain Tramadol HCl 25 mg 05/29/25 23:57 05/31/25 20:52 Tramadol 50 Mg Tablet PO 25 mg Q8H PRN Administration Moderate Pain (Level 4-6) Objective Vital Signs/Intake & Output Reviewed Vital Signs: Yes Vital Signs: Vital Signs x48h Temp Pulse Resp BP Pulse Ox 06/01/25 13:00 36.7 C 90 20 112/53 L 95 06/01/25 10:35 36.7 C 81 18 109/58 L 97 Intake & Output: Intake & Output 05/29/25 05/30/25 05/31/25 06/01/25 23:59 23:59 23:59 23:59 Intake Total 2480 / 2480 2305 / 2305 480 / 480 Output Total 850 / 850 2075 / 2075 1150 / 1150 Balance 1630 / 1630 230 / 230 -670 / -670 Weight (kg) 74.5 kg 35 kg Objective General Appearance: positive No acute distress and Alert Eyes Bilateral: positive Normal inspection ENT: positive ENT inspection nml Neck: positive Nml inspection Respiratory: positive Chest non-tender and No respiratory distress Cardiovascular: positive Regular rate & rhythm Abdomen: positive Non-tender Skin: positive Color nml and Other (Surgical dressing in place) Extremities: positive Non-tender Neurologic/Psychiatric: positive Other (Oriented x 1, demented) Lab Results 05/30/25 05:06 05/30/25 05:06 Other Labs: Lab Results x24hrs 05/30/25 Range/Units 19:40 Urine Color YELLOW Urine Clarity CLEAR (CLEAR) Urine pH 5.0 (5.0-7.5) PH Ur Specific [place] 1.025 (1.002-1.030) Urine Protein NEGATIVE (NEGATIVE) mg/dL Urine Glucose (UA) NEGATIVE (NEGATIVE) mg/dL Urine Ketones NEGATIVE (NEGATIVE) mg/dL Urine Occult Blood NEGATIVE (NEGATIVE) Urine Nitrite NEGATIVE (NEGATIVE) Urine Bilirubin NEGATIVE (NEGATIVE) Urine Urobilinogen 0.2 (NORMAL) (NORMAL) E.U./dL Ur Leukocyte Esterase NEGATIVE (NEGATIVE) Urine RBC None Seen (0-5) /HPF Urine WBC 0-3 (0-5) /HPF Ur Squamous Epith Cells RARE Squamous (<= Few) Urine Bacteria None Seen (None Seen) /HPF Urine Culture Comments NOT INDICATED Assessment/Plan Problem List (1) Intertrochanteric fracture of right hip: Impression: Due to fall from bed OR on 05/30 for open reduction internal fixation right intertrochanteric fracture PT eval Anticipate need SNF 06/01: Physical therapy recommends SNF. She has been using frequent dosing of morphine for pain control. I am attempting to get this pain under better control. I have ordered Tylenol 1 g p.o. 3 times daily and have changed her morphine from 2 mg IV push every 4 hours as needed to morphine 1 mg IV push every 6 hours scheduled. Qualifiers: Encounter type: initial encounter Fracture alignment: displaced F racture type: closed Qualified Code(s): S72.141A - Displaced intertrochanteric fracture of right femur, initial encounter for closed fracture (2) Anemia: Impression: Was noted to have hemoglobin of 10.9 on presentation Iron panel was ordered, which shows low iron, but high ferritin, I suspect this is anemia of chronic disease She has a mild to moderate decrease in her estimated GFR Will defer management to PCP Hemoglobin stable (3) Leukocytosis: Impression: Likely reactionary due to pain UA was checked on presentation with no acute concerns Chest x-ray shows low likelihood of pneumonia
[2025-06-02 05:32] LABS: HCT - HEMATOCRIT 25.6 % (37.0-47.0); HGB - HEMOGLOBIN 8.1 g/dL (12.0-16.0); MEAN PLATELET VOLUME 11.0 fL (7.9-10.8); NRBC ABSOLUTE COUNT (AUTO) 0.00 x10^3/uL; NUCLEATED RED BLOOD CELLS AUTO 0.0 /100WBC; PLT - PLATELET COUNT 131 10^3/uL (130-450); RED CELL DISTRIBUTION WIDTH 17.2 % (12.0-15.0)
[2025-06-02 05:53] LABS: BUN - BLOOD UREA NITROGEN 23.0 mg/dL (6-20); CARBON DIOXIDE - CO2 32.0 mmol/L (21-32); CREATININE 1.1 mg/dL (0.6-1.3); GFR - MDRD 48.0 (>89)
--- NOTE | 2025-06-02 14:07 | PROVIDER PROGRESS NOTE ---
Subjective Prog Note Date Prog Note Date: 06/02/25 Subjective Pt reports feeling: Improved Current Medications Current Medications Current Medications: Current Medications Generic Name Dose Route Start Last Admin Trade Name Marcia PRN Reason Stop Dose Admin Acetaminophen 1,000 mg 06/01/25 14:00 06/02/25 13:49 Acetaminophen 500 Mg Tablet PO 1,000 mg TID TRACY Administration Albuterol 2.5 mg 05/30/25 00:16 Albuterol Neb 2.5 Mg/3 Ml INH Q2H PRN SHORTNESS OF BREATH Benzonatate 100 mg 05/29/25 23:57 Benzonatate 100 Mg Capsule PO TID PRN Cough Calcium Carbonate/Glycine 500 mg 05/31/25 21:00 06/02/25 08:31 Calcium Carbonate Chew 500 Mg Tablet PO 500 mg BID TRACY Administration Cholecalciferol 25 mcg 06/01/25 09:00 06/02/25 08:31 Cholecalciferol 25 Mcg Tablet PO 25 mcg DAILY TRACY Administration Melatonin 3 mg 05/29/25 23:57 05/30/25 23:47 Melatonin 3 Mg Tablet PO 3 mg QPM PRN Administration sleep Morphine Sulfate 1 mg 06/01/25 12:00 06/02/25 12:08 Morphine 2 Mg/Ml Carpuject IVP 1 mg Q6H TRACY Administration Multivitamins/Minerals 1 tab 05/30/25 08:00 06/02/25 08:31 Multivitamin W/Minerals Tablet PO 1 tab DAILYWM TRACY Administration Ondansetron HCl 4 mg 05/29/25 23:57 05/30/25 19:24 Ondansetron 4 Mg/2 Ml Vial IVP 4 mg Q8H PRN Administration Nausea / Vomiting Phenol/Menthol 1 sprays 05/29/25 23:57 Phenol Throat [place] 177 Ml MM Q4HR PRN Mouth Sore Pain Polyethylene Glycol 17 gm 06/02/25 09:00 06/02/25 08:33 Polyethylene Glycol 3350 17 Gm Packet PO Not Given DAILY [facility] Throat Lozenges 1 lozenge 05/29/25 23:57 Benzocaine/Menthol Lozenge MM Q2HR PRN Mouth Sore Pain Tramadol HCl 25 mg 05/29/25 23:57 05/31/25 20:52 Tramadol 50 Mg Tablet PO 25 mg Q8H PRN Administration Moderate Pain (Level 4-6) Objective Vital Signs/Intake & Output Reviewed Vital Signs: Yes Vital Signs: Vital Signs x48h Temp Pulse Resp BP Pulse Ox 06/01/25 13:00 36.7 C 90 20 112/53 L 95 06/01/25 10:35 36.7 C 81 18 109/58 L 97 Intake & Output: Intake & Output 05/30/25 05/31/25 06/01/25 06/02/25 23:59 23:59 23:59 23:59 Intake Total 2480 / 2480 2305 / 2305 1020 / 1020 720 / 720 Output Total 850 / 850 2074 / 2074 1950 / 1950 700 / 700 Balance 1630 / 1630 230 / 230 -930 / -930 Weight (kg) 35 kg Objective General Appearance: positive No acute distress and Alert Eyes Bilateral: positive Normal inspection ENT: positive ENT inspection nml Neck: positive Nml inspection Respiratory: positive Chest non-tender and No respiratory distress Cardiovascular: positive Regular rate & rhythm Abdomen: positive Non-tender Skin: positive Color nml and Other (Surgical dressing in place) Extremities: positive Non-tender Neurologic/Psychiatric: positive Other (Oriented x 1, demented) Lab Results 06/02/25 05:23 06/02/25 05:23 Other Labs: Lab Results x24hrs 06/02/25 Range/Units 05:23 WBC 9.2 (4.8-10.8) x10^3/uL RBC 2.44 L (4.20-5.40) 10^6/uL Hgb 8.1 L (12.0-16.0) g/dL Hct 25.6 L (37.0-47.0) % MCV 104.9 H (81.0-99.0) fL MCH 33.2 H (27.0-31.0) pg MCHC 31.6 L (32.0-36.0) g/dL RDW 17.2 H (12.0-15.0) % Plt Count 131 (130-450) 10^3/uL MPV 11.0 H (7.9-10.8) fL Neut # (Auto) 6.7 H (1.5-6.6) 10^3/uL Lymph # (Auto) 1.1 L (1.5-3.5) 10^3/uL [place] # (Auto) 0.8 (0.0-1.0) 10^3/uL Eos # (Auto) 0.4 (0.0-0.7) 10^3/uL Baso # (Auto) 0.1 (0.0-0.1) 10^3/uL Absolute Nucleated RBC 0.00 x10^3/uL Nucleated RBC % 0.0 /100WBC Sodium 138 (135-145) mmol/L Potassium 4.4 (3.5-4.5) mmol/L Chloride 104 (101-111) mmol/L Carbon Dioxide 32 (21-32) mmol/L Anion Gap 2.0 L (6-13) BUN 23 H (6-20) mg/dL Creatinine 1.1 (0.6-1.3) mg/dL Estimated GFR (MDRD) 48 L (>89) Glucose 110 H (74-104) mg/dL Calcium 8.5 (8.5-10.3) mg/dL Assessment/Plan Problem List (1) Intertrochanteric fracture of right hip: Impression: Due to fall from bed OR on 05/30 for open reduction internal fixation right intertrochanteric fracture PT eval Anticipate need SNF 06/01: Physical therapy recommends SNF. She has been using frequent dosing of morphine for pain control. I am attempting to get this pain under better control. I have ordered Tylenol 1 g p.o. 3 times daily and have changed her morphine from 2 mg IV push every 4 hours as needed to morphine 1 mg IV push every 6 hours scheduled. 06/02: Pain is under better control. Continuing scheduled Tylenol. Discontinuing IV morphine. Will continue as needed tramadol p.o. She is not medically cleared for discharge Qualifiers: Encounter type: initial encounter Fracture alignment: displaced F racture type: closed Qualified Code(s): S72.141A - Displaced intertrochanteric fracture of right femur, initial encounter for closed fracture (2) Anemia: Impression: Was noted to have hemoglobin of 10.9 on presentation Iron panel was ordered, which shows low iron, but high ferritin, I suspect this is anemia of chronic disease She has a mild to moderate decrease in her estimated GFR Will defer management to PCP Hemoglobin stable (3) Leukocytosis: Impression: Likely reactionary due to pain UA was checked on presentation with no acute concerns Chest x-ray shows low likelihood of pneumonia
[2025-06-03 05:12] LABS: HCT - HEMATOCRIT 25.0 % (37.0-47.0); HGB - HEMOGLOBIN 8.0 g/dL (12.0-16.0); MEAN PLATELET VOLUME 10.3 fL (7.9-10.8); NRBC ABSOLUTE COUNT (AUTO) 0.00 x10^3/uL; NUCLEATED RED BLOOD CELLS AUTO 0.0 /100WBC; PLT - PLATELET COUNT 150 10^3/uL (130-450); RED CELL DISTRIBUTION WIDTH 17.2 % (12.0-15.0)
[2025-06-03 05:28] LABS: BUN - BLOOD UREA NITROGEN 25.0 mg/dL (6-20); CARBON DIOXIDE - CO2 30.0 mmol/L (21-32); CREATININE 1.0 mg/dL (0.6-1.3); GFR - MDRD 54.0 (>89)
--- NOTE | 2025-06-03 11:00 | PROVIDER PROGRESS NOTE ---
Subjective Prog Note Date Prog Note Date: 06/03/25 Subjective Pt reports feeling: No change Current Medications Current Medications Current Medications: Current Medications Generic Name Dose Route Start Last Admin Trade Name Marcia PRN Reason Stop Dose Admin Acetaminophen 1,000 mg 06/01/25 14:00 06/03/25 05:30 Acetaminophen 500 Mg Tablet PO 1,000 mg TID TRACY Administration Albuterol 2.5 mg 05/30/25 00:16 Albuterol Neb 2.5 Mg/3 Ml INH Q2H PRN SHORTNESS OF BREATH Benzonatate 100 mg 05/29/25 23:57 Benzonatate 100 Mg Capsule PO TID PRN Cough Calcium Carbonate/Glycine 500 mg 05/31/25 21:00 06/03/25 09:00 Calcium Carbonate Chew 500 Mg Tablet PO 500 mg BID TRACY Administration Cholecalciferol 25 mcg 06/01/25 09:00 06/03/25 09:00 Cholecalciferol 25 Mcg Tablet PO 25 mcg DAILY TRACY Administration Melatonin 3 mg 05/29/25 23:57 05/30/25 23:47 Melatonin 3 Mg Tablet PO 3 mg QPM PRN Administration sleep Multivitamins/Minerals 1 tab 05/30/25 08:00 06/03/25 09:00 Multivitamin W/Minerals Tablet PO 1 tab DAILYWM TRACY Administration Ondansetron HCl 4 mg 05/29/25 23:57 05/30/25 19:24 Ondansetron 4 Mg/2 Ml Vial IVP 4 mg Q8H PRN Administration Nausea / Vomiting Phenol/Menthol 1 sprays 05/29/25 23:57 Phenol Throat [place] 177 Ml MM Q4HR PRN Mouth Sore Pain Polyethylene Glycol 17 gm 06/02/25 09:00 06/03/25 09:00 Polyethylene Glycol 3350 17 Gm Packet PO 17 gm DAILY TRACY Administration Throat Lozenges 1 lozenge 05/29/25 23:57 Benzocaine/Menthol Lozenge MM Q2HR PRN Mouth Sore Pain Tramadol HCl 25 mg 05/29/25 23:57 06/03/25 00:10 Tramadol 50 Mg Tablet PO 25 mg Q8H PRN Administration Moderate Pain (Level 4-6) Objective Vital Signs/Intake & Output Reviewed Vital Signs: Yes Vital Signs: Vital Signs x48h Temp Pulse Resp BP Pulse Ox 06/03/25 08:30 36.6 C 84 18 129/63 97 Intake & Output: Intake & Output 05/31/25 06/01/25 06/02/25 06/03/25 23:59 23:59 23:59 23:59 Intake Total 2304 1020 / 1020 1020 / 1020 120 / 120 Output Total 2074 / 1949 2800 / 2800 650 / 650 Balance 230 / 230 -930 / -930 -1780 / -1780 -530 / -530 Objective General Appearance: positive No acute distress and Alert Eyes Bilateral: positive Normal inspection ENT: positive ENT inspection nml Neck: positive Nml inspection Respiratory: positive Chest non-tender and No respiratory distress Cardiovascular: positive Regular rate & rhythm Abdomen: positive Non-tender Skin: positive Color nml and Other (Surgical dressing in place) Extremities: positive Non-tender Neurologic/Psychiatric: positive Other (Oriented x 1, demented) Lab Results 06/03/25 05:05 06/03/25 05:05 Other Labs: Lab Results x24hrs 06/03/25 Range/Units 05:05 WBC 8.6 (4.8-10.8) x10^3/uL RBC 2.40 L (4.20-5.40) 10^6/uL Hgb 8.0 L (12.0-16.0) g/dL Hct 25.0 L (37.0-47.0) % MCV 104.2 H (81.0-99.0) fL MCH 33.3 H (27.0-31.0) pg MCHC 32.0 (32.0-36.0) g/dL RDW 17.2 H (12.0-15.0) % Plt Count 150 (130-450) 10^3/uL MPV 10.3 (7.9-10.8) fL Neut # (Auto) 6.2 (1.5-6.6) 10^3/uL Lymph # (Auto) 1.3 L (1.5-3.5) 10^3/uL [place] # (Auto) 0.5 (0.0-1.0) 10^3/uL Eos # (Auto) 0.4 (0.0-0.7) 10^3/uL Baso # (Auto) 0.1 (0.0-0.1) 10^3/uL Absolute Nucleated RBC 0.00 x10^3/uL Nucleated RBC % 0.0 /100WBC Sodium 139 (135-145) mmol/L Potassium 3.9 (3.5-4.5) mmol/L Chloride 104 (101-111) mmol/L Carbon Dioxide 30 (21-32) mmol/L Anion Gap 5.0 L (6-13) BUN 25 H (6-20) mg/dL Creatinine 1.0 (0.6-1.3) mg/dL Estimated GFR (MDRD) 54 L (>89) Glucose 135 H (74-104) mg/dL Calcium 8.5 (8.5-10.3) mg/dL Assessment/Plan Problem List (1) Intertrochanteric fracture of right hip: Impression: Due to fall from bed OR on 05/30 for open reduction internal fixation right intertrochanteric fracture PT eval Anticipate need SNF 06/01: Physical therapy recommends SNF. She has been using frequent dosing of morphine for pain control. I am attempting to get this pain under better control. I have ordered Tylenol 1 g p.o. 3 times daily and have changed her morphine from 2 mg IV push every 4 hours as needed to morphine 1 mg IV push every 6 hours scheduled. 06/02: Pain is under better control. Continuing scheduled Tylenol. Discontinuing IV morphine. Will continue as needed tramadol p.o. She is now medically cleared for discharge 06/03: Continue current management. Remains cleared for discharge Qualifiers: Encounter type: initial encounter Fracture alignment: displaced F racture type: closed Qualified Code(s): S72.141A - Displaced intertrochanteric fracture of right femur, initial encounter for closed fracture (2) Anemia: Impression: Was noted to have hemoglobin of 10.9 on presentation Iron panel was ordered, which shows low iron, but high ferritin, I suspect this is anemia of chronic disease She has a mild to moderate decrease in her estimated GFR Will defer management to PCP Hemoglobin stable (3) Leukocytosis: Impression: Likely reactionary due to pain UA was checked on presentation with no acute concerns Chest x-ray shows low likelihood of pneumonia
[2025-06-04 04:49] LABS: HCT - HEMATOCRIT 27.0 % (37.0-47.0); HGB - HEMOGLOBIN 8.6 g/dL (12.0-16.0); MEAN PLATELET VOLUME 11.0 fL (7.9-10.8); NRBC ABSOLUTE COUNT (AUTO) 0.00 x10^3/uL; NUCLEATED RED BLOOD CELLS AUTO 0.0 /100WBC; PLT - PLATELET COUNT 193 10^3/uL (130-450); RED CELL DISTRIBUTION WIDTH 17.2 % (12.0-15.0)
[2025-06-04 05:05] LABS: BUN - BLOOD UREA NITROGEN 23.0 mg/dL (6-20); CARBON DIOXIDE - CO2 30.0 mmol/L (21-32); CREATININE 1.0 mg/dL (0.6-1.3); GFR - MDRD 54.0 (>89)
--- NOTE | 2025-06-04 11:33 | PROVIDER PROGRESS NOTE ---
Subjective Prog Note Date Prog Note Date: 06/04/25 Subjective Pt reports feeling: No change Current Medications Current Medications Current Medications: Current Medications Generic Name Dose Route Start Last Admin Trade Name Marcia PRN Reason Stop Dose Admin Acetaminophen 1,000 mg 06/01/25 14:00 06/04/25 05:56 Acetaminophen 500 Mg Tablet PO 1,000 mg TID TRACY Administration Albuterol 2.5 mg 05/30/25 00:16 Albuterol Neb 2.5 Mg/3 Ml INH Q2H PRN SHORTNESS OF BREATH Benzonatate 100 mg 05/29/25 23:57 Benzonatate 100 Mg Capsule PO TID PRN Cough Calcium Carbonate/Glycine 500 mg 05/31/25 21:00 06/04/25 08:00 Calcium Carbonate Chew 500 Mg Tablet PO 500 mg BID TRACY Administration Cholecalciferol 25 mcg 06/01/25 09:00 06/04/25 08:00 Cholecalciferol 25 Mcg Tablet PO 25 mcg DAILY TRACY Administration Melatonin 3 mg 05/29/25 23:57 05/30/25 23:47 Melatonin 3 Mg Tablet PO 3 mg QPM PRN Administration sleep Multivitamins/Minerals 1 tab 05/30/25 08:00 06/04/25 07:56 Multivitamin W/Minerals Tablet PO 1 tab DAILYWM TRACY Administration Ondansetron HCl 4 mg 05/29/25 23:57 05/30/25 19:24 Ondansetron 4 Mg/2 Ml Vial IVP 4 mg Q8H PRN Administration Nausea / Vomiting Phenol/Menthol 1 sprays 05/29/25 23:57 Phenol Throat [place] 177 Ml MM Q4HR PRN Mouth Sore Pain Polyethylene Glycol 17 gm 06/02/25 09:00 06/04/25 07:24 Polyethylene Glycol 3350 17 Gm Packet PO Not Given DAILY [facility] Throat Lozenges 1 lozenge 05/29/25 23:57 Benzocaine/Menthol Lozenge MM Q2HR PRN Mouth Sore Pain Tramadol HCl 25 mg 05/29/25 23:57 06/03/25 00:10 Tramadol 50 Mg Tablet PO 25 mg Q8H PRN Administration Moderate Pain (Level 4-6) Objective Vital Signs/Intake & Output Reviewed Vital Signs: Yes Vital Signs: Vital Signs x48h Temp Pulse Resp BP Pulse Ox 06/04/25 07:24 36.6 C 87 20 114/68 98 Intake & Output: Intake & Output 06/01/25 06/02/25 06/03/25 06/04/25 23:59 23:59 23:59 23:59 Intake Total 1020 / 1020 1020 / 1020 1120 / 1120 300 / 300 Output Total 1949 / 1949 2800 / 2800 2840 / 2840 300 / 300 Balance -930 / -930 -1780 / -1780 -1720 / -1720 0 / 0 Objective General Appearance: positive No acute distress and Alert Eyes Bilateral: positive Normal inspection ENT: positive ENT inspection nml Neck: positive Nml inspection Respiratory: positive Chest non-tender and No respiratory distress Cardiovascular: positive Regular rate & rhythm Abdomen: positive Non-tender Skin: positive Color nml and Other (Surgical dressing in place) Extremities: positive Non-tender Neurologic/Psychiatric: positive Other (Oriented x 1, demented) Lab Results 06/04/25 04:32 06/04/25 04:32 Other Labs: Lab Results x24hrs 06/04/25 Range/Units 04:32 WBC 8.5 (4.8-10.8) x10^3/uL RBC 2.60 L (4.20-5.40) 10^6/uL Hgb 8.6 L (12.0-16.0) g/dL Hct 27.0 L (37.0-47.0) % MCV 103.8 H (81.0-99.0) fL MCH 33.1 H (27.0-31.0) pg MCHC 31.9 L (32.0-36.0) g/dL RDW 17.2 H (12.0-15.0) % Plt Count 193 (130-450) 10^3/uL MPV 11.0 H (7.9-10.8) fL Neut # (Auto) 5.6 (1.5-6.6) 10^3/uL Lymph # (Auto) 1.2 L (1.5-3.5) 10^3/uL [place] # (Auto) 0.9 (0.0-1.0) 10^3/uL Eos # (Auto) 0.5 (0.0-0.7) 10^3/uL Baso # (Auto) 0.1 (0.0-0.1) 10^3/uL Absolute Nucleated RBC 0.00 x10^3/uL Nucleated RBC % 0.0 /100WBC Sodium 140 (135-145) mmol/L Potassium 4.6 H (3.5-4.5) mmol/L Chloride 105 (101-111) mmol/L Carbon Dioxide 30 (21-32) mmol/L Anion Gap 5.0 L (6-13) BUN 23 H (6-20) mg/dL Creatinine 1.0 (0.6-1.3) mg/dL Estimated GFR (MDRD) 54 L (>89) Glucose 100 (74-104) mg/dL Calcium 8.8 (8.5-10.3) mg/dL Assessment/Plan Problem List (1) Intertrochanteric fracture of right hip: Impression: Due to fall from bed OR on 05/30 for open reduction internal fixation right intertrochanteric fracture PT eval Anticipate need SNF 06/01: Physical therapy recommends SNF. She has been using frequent dosing of morphine for pain control. I am attempting to get this pain under better control. I have ordered Tylenol 1 g p.o. 3 times daily and have changed her morphine from 2 mg IV push every 4 hours as needed to morphine 1 mg IV push every 6 hours scheduled. 06/02: Pain is under better control. Continuing scheduled Tylenol. Discontinuing IV morphine. Will continue as needed tramadol p.o. She is now medically cleared for discharge Continue current management. Remains cleared for discharge Qualifiers: Encounter type: initial encounter Fracture alignment: displaced F racture type: closed Qualified Code(s): S72.141A - Displaced intertrochanteric fracture of right femur, initial encounter for closed fracture (2) Anemia: Impression: Was noted to have hemoglobin of 10.9 on presentation Iron panel was ordered, which shows low iron, but high ferritin, I suspect this is anemia of chronic disease She has a mild to moderate decrease in her estimated GFR Will defer management to PCP Hemoglobin stable (3) Leukocytosis: Impression: Likely reactionary due to pain UA was checked on presentation with no acute concerns Chest x-ray shows low likelihood of pneumonia
--- NOTE | 2025-06-04 13:00 | Discharge Summary ---
Discharge Summary Admit Date: 05/30/25 Discharge Date: 06/04/25 Discharging Provider: Joey Daniels Primary Care Provider: Marissa Garcia Code Status: Attempt Resuscitation DIAGNOSES Admission Diagnoses: Recent fracture of hip Fall from bed Leukocytosis Anemia Chronic kidney disease Discharge Diagnoses with Status of Each Condition: Recent fracture of hippostop Fall from bedpostop from fracture Leukocytosisresolved Anemiatrending up CKDchronic HPI History of Present Illness: pt with h/o developmental delay + early dementia. brought to hospital after rolling out of bed and hurting her R hip. apart from hip pain, she has no other complaints. does not take any meds. no fevers, chills, n/v/d. no head injuries or LOC. no dysuria reported. no chest pain. no head pain. no sob. details obtained from discussion with ed staff. ortho consulted d/o displaced R intertrochanteric fx. no numbness or tingling. HOSPITAL COURSE Hospital Course: Patient was held in the hospital and underwent open reduction, internal fixation of displaced right hip intertrochanteric fracture on 05/30. She was evaluated by physical therapy, who recommended SNF at discharge. She has been started on calcium and vitamin D supplements, and is discharging to SNF to undergo continued physical therapy ALLERGIES Allergies Allergy/AdvReac Type Severity Reaction Status Date / Time No Known Drug Allergies Allergy Verified 07/24/24 15:08 MEDICATIONS Ambulatory Orders Medication Instructions Recorded Confirmed acetaminophen 325 mg tablet 650 mg (2 x 325 mg) PO Q4H PRN 06/04/25 (Tylenol) fever or pain #90 tabs aspirin 81 mg tablet,delayed 81 mg PO DAILY #30 tabs 0 06/04/25 release calcium carbonate 500 mg (2.5 x 200 mg calcium (500 06/04/25 mg)) PO BID 30 days #150 tabs cholecalciferol (vitamin D3) 25 25 mcg PO DAILY 30 day s #30 tabs 06/04/25 mcg (1,000 unit) tablet [id number] 1 tab PO DAILYWM 30 days #3 0 tabs 06/04/25 fumarate 19 mg-folic acid 400 mcg tablet (Therapeutic-M) PHYSICAL EXAM AT DISCHARGE Vital Signs: Vital Signs x48h Temp Pulse Resp BP Pulse Ox 06/04/25 15:55 36.8 C 90 22 114/70 96 General Appearance: positive No acute distress and Alert Respiratory: positive Chest non-tender and No respiratory distress Cardiovascular: positive Regular rate & rhythm Peripheral Pulses: positive 2+ Abdomen: positive Non-tender Skin: positive Color nml Extremities: positive Non-tender and Other (Dressing in place right hip) Neurologic/Psychiatric: positive Other (Oriented x 1, pleasant, follows commands) LABS 06/04/25 04:32 06/04/25 04:32 FOLLOW UP Follow Up: With PCP TIME SPENT Time Spent in Discharge (Minutes): 38 Discharge Plan Discharge Patient Disposition: 03 SNF DC/Xfer Condition: Stable Prescriptions: New calcium carbonate 200 mg calcium (500 mg) Tablet,Chewable 500 mg PO BID 30 Days Qty: 150 0RF cholecalciferol (vitamin D3) 25 mcg (1,000 unit) Tablet 25 mcg PO DAILY 30 Days Qty: 30 0RF Therapeutic-M 19 mg iron- 400 mcg Tablet 1 tab PO DAILYWM 30 Days Qty: 30 0RF acetaminophen [Tylenol] 325 mg tablet 650 mg PO Q4H PRN (Reason: fever or pain) Qty: 90 0RF aspirin 81 mg tablet,delayed release (DR/EC) 81 mg PO DAILY Qty: 30 0RF Activity Restrictions: Activity as Tolerated Diet: Regular Health Concerns: You came into the hospital after falling out of your bed and suffering a right intertrochanteric fracture. You went to the OR on 828 to get this fixed. You were evaluated by physical therapy, who recommends SNF placement. I am sending you home with prescriptions for Tylenol for pain management, calcium and vitamin D supplements to promote bone healing, as well as a multivitamin. I would encourage you to be as participatory with PT as possible, and follow-up with your PCP Print Language: Maltese Patient Instructions: Surg Dc Stand Alone Forms: SNF Discharge, PCP List Follow-up Care: Marissa Garcia MD [Primary Care Provider, Family Practice] Report called to and time (if no answer, doc. time of each call attempted): Carri walton, 1630 Vitals documented within 30 minutes of discharge?: Yes
[2025-06-04 16:29] VITALS: BP 114/70; TEMP 98.2; O2SAT 96
== END 2025-06-04 16:05 | DRG 482 ==
LOC: ED 21:42 → MS2 21:42
PROVIDERS: ADMIT Student in an Organized Health Care Education/Training Program; ATTEND Student in an Organized Health Care Education/Training Program
PROC: HIPNAIL (2025-05-30 09:15)
DX: Z11.52 Encounter for screening for COVID-19; S72.141A Displaced intertrochanteric fracture of right femur, initial encounter for closed fracture; N28.9 Disorder of kidney and ureter, unspecified; R03.0 Elevated blood-pressure reading, without diagnosis of hypertension; N18.9 Chronic kidney disease, unspecified; D72.828 Other elevated white blood cell count; D63.8 Anemia in other chronic diseases classified elsewhere; Y92.003 Bedroom of unspecified non-institutional (private) residence as the place of occurrence of the external cause; F03.90 Unspecified dementia, unspecified severity, without behavioral disturbance, psychotic disturbance, mood disturbance, and anxiety; W06.XXXA Fall from bed, initial encounter; S32.592A Other specified fracture of left pubis, initial encounter for closed fracture; R62.50 Unspecified lack of expected normal physiological development in childhood; R53.81 Other malaise; D72.829 Elevated white blood cell count, unspecified; D63.1 Anemia in chronic kidney disease; W19.XXXA Unspecified fall, initial encounter